=== PATIENT | female | born 1965 | race African-American/Black ===

== ENCOUNTER 2021-02-22 15:27 | Emergency (ER) | payer OTHER ==
[~2021-02-22] VITALS: Ht 167.6 cm; Wt 90.3 kg
[2021-02-22] MEDS ORDERED: POTASSIUM CHLO10 MEQ (16:26)
[2021-02-22] MEDS ORDERED: EUTHYROX50 MCG PO (16:26)
[2021-02-22] MEDS ORDERED: KETO10TA2 PO (18:34)
[2021-02-22] MEDS ORDERED: CLINDAMYCIN HC300 MG PO (18:34)
[2021-02-22] MEDS ORDERED: INTESTINEX680 M2 PO (18:34)
== END 2021-02-22 20:55 | disposition home or self-care (01) ==
LOC: ER 15:27
DX: S69.82XA Other specified injuries of left wrist, hand and finger(s), initial encounter (principal); W05.2XXA Fall from non-moving motorized mobility scooter, initial encounter; Y93.89 Activity, other specified; Y92.89 Other specified places as the place of occurrence of the external cause; Y99.8 Other external cause status